=== PATIENT | female | born 1935 ===

== ENCOUNTER 2016-07-23 11:07 | Observation (INO) | payer MEDICARE, OTHER ==
--- NOTE | 2016-07-23 11:24 | ED PDOC ---
HPI: General Adult Time Seen by Provider: 07/23/16 11:20 Chief Complaint (Provider): chest pain History Per: Patient History/Exam Limitations: no limitations Additional Complaint(s): 80yo female sent to the ED from [facility] for changes noted on EKG. Family states patient was not feeling well last night with left sided chest pain and had a fever this morning. Family states patient complaining of body aches, generally weak. No ear pain, abdominal pain, nausea, vomit, dizziness, rash, dysuria. A loop recorder was implanted in September 2015 by an electrocardiologist in [place]. Patient reportedly not compliant with aspirin. When she had CVA on 06/19/15 she had minimal right side weakness and difficulty with speech. 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[place], [place] PMD: [facility] Past Medical History Reviewed: Historical Data, Nursing Documentation, Vital Signs Vital Signs: Last Vital Signs Temp 98.8 F 07/24/16 16:00 Pulse 60 07/24/16 16:00 Resp 20 07/24/16 16:00 BP 150/73 07/24/16 16:00 Pulse Ox 96 07/24/16 16:00 - Medical History PMH: CVA ("minor" on 06/19/15), HTN, Hypercholesterolemia - Family History Family History: States: Unknown Family Hx - Home Medications Home Medications: Ambulatory Orders Medication Instructions Recorded Atorvastatin [Lipitor] 40 mg PO HS 07/23/16 Valsartan [Diovan] 80 mg PO DAILY 07/23/16 Aspirin [Aspirin Chewable] 81 mg PO DAILY #30 chew 07/24/16 Famotidine [Pepcid] 20 mg PO DAILY #30 tab 07/24/16 - Allergies Allergies/Adverse Reactions: Allergies Allergy/AdvReac Type Severity Reaction Status Date / Time No Known Allergies Allergy Verified 07/23/16 11:22 Review of Systems ROS Statement: Except As Marked, All Systems Reviewed And Found Negative Constitutional: Positive for: Fever, Weakness, Other (body aches) ENT: Negative for: Ear Pain Cardiovascular: Positive for: Chest Pain Gastrointestinal: Negative for: Nausea, Vomiting, Abdominal Pain Genitourinary Female: Negative for: Dysuria Skin: Negative for: Rash Neurological: Negative for: Dizziness Physical Exam - Reviewed Nursing Documentation Reviewed: Yes Vital Signs Reviewed: Yes - Physical Exam Appears: Positive for: Well, Non-toxic, No Acute Distress Head Exam: Positive for: ATRAUMATIC, NORMAL INSPECTION, NORMOCEPHALIC Skin: Positive for: Warm, Dry Eye Exam: Positive for: EOMI, PERRL Cardiovascular/Chest: Positive for: Regular Rate, Rhythm Respiratory: Positive for: Normal Breath Sounds. Negative for: Rales, Rhonchi, Wheezing Gastrointestinal/Abdominal: Positive for: Soft. Negative for: Tenderness Extremity: Positive for: Normal ROM - Laboratory Results Result Diagrams: 07/24/16 04:55 07/24/16 04:55 - Radiology X-Ray: Read By Radiologist (CXR) X-Ray Interpretation: Other (Mild pulmonary venous congestion. No lobar pneumonia.) Medical Decision Making Medical Decision Makin Cardiac workup initiated. Rule out sepsis. EKG, CXR, Labs, influenza ordered. 1138 Vital signs reviewed, 101.2*F fever noted. 1527 Case discussed with Fred Thorne, ALEAH @ [facility]. Discussed new EKG finding RBBB, labs, CXR, normal lactate. Patient accepted to [facility] for fever, abnormal EKG Disposition - Clinical Impression Clinical Impression: Fever, Abnormal EKG, Chest pain - Patient ED Disposition Is Patient to be Admitted: Yes Counseled Patient/Family Regarding: Studies Performed, Diagnosis - Disposition Disposition Time: 15:27 Condition: STABLE - Pt Status Changed To: Hospital Disposition Of: Observation - POA Present On Arrival: None Additional Comments - Additional Comments Additional Comments: Scribe Attestation: Documented by Ayan Velasquez acting as a scribe for Kevin Elias DO. Provider Scribe Attestation: All medical record entries made by the Scribe were at my direction and personally dictated by me. I have reviewed the chart and agree that the record accurately reflects my personal performance of the history, physical exam, medical decision making, and the department course for this patient. I have also personally directed, reviewed, and agree with the discharge instructions and disposition.
[2016-07-23] MEDS ORDERED: Sodium Chloride 0.9% 1,000 ML IV STA (11:39)
[2016-07-23 12:04] LABS: BASO # 0.1 K/uL (0.0-0.2); BASO % 0.5 % (0.0-2.0); EOS % 0.1 % (0.0-4.0); HEMATOCRIT 37.5 % (34.0-47.0); LYMPH # 1.9 K/uL (1.0-4.3); LYMPH % 16.6 % (20.0-40.0); MEAN CELL VOLUME 87.1 fl (81.0-99.0); MEAN CORPUSCULAR HEMOGLOBIN 29.7 pg (27.0-31.0); MEAN CORPUSCULAR HGB CONC 34.1 g/dL (33.0-37.0); MEAN PLATELET VOLUME 8.5 fl (7.2-11.7); MONO # 0.6 K/uL (0.0-0.8); NEUT # 9.1 K/uL (1.8-7.0); NEUT % 77.8 % (50.0-75.0); RED CELL DISTRIBUTION WIDTH 13.7 % (11.5-14.5); WHITE BLOOD COUNT 11.7 K/uL (4.8-10.8)
[2016-07-23 12:13] LABS: ALB/GLOB RATIO 1.1 (1.0-2.1); ALKALINE PHOSPHATASE 49 U/L (38-126); ALT/SGPT 31 U/L (9-52); AST/SGOT 26 U/L (14-36); BILIRUBIN,TOTAL 0.6 mg/dl (0.2-1.3); BLOOD UREA NITROGEN 15 mg/dl (7-17); CALCIUM 9.1 mg/dL (8.4-10.2); CARBON DIOXIDE 17 mmol/L (22-30); CHLORIDE 106 mmol/L (98-107); GFR AFRICAN-AMERICAN > 60; GLUCOSE,RANDOM 111 mg/dL (65-105); MAGNESIUM 1.6 MG/DL (1.6-2.3); PHOSPHOROUS 3.2 mg/dl (2.5-4.5); POTASSIUM 3.6 MMOL/L (3.6-5.0); SODIUM 141 mmol/l (132-148); TOTAL PROTEIN 7.6 G/DL (6.3-8.2)
[2016-07-23 12:25] LABS: PARTIAL THROMBOPLASTIN TIME 25.6 SECONDS (23.3-32.5)
[2016-07-23 12:29] LABS: VENOUS BLOOD GAS BASE EXCESS 0.3 mmol/L (0.0-2.0); VENOUS BLOOD GAS PCO2 21 mmHg (40-60); VENOUS BLOOD PH 7.59 (7.32-7.43)
[2016-07-23 14:30] LABS: RBC URINE < 1 /hpf (0-3); URINE BILIRUBIN NEGATIVE (NEGATIVE); URINE BLOOD NEGATIVE (NEGATIVE); URINE COLOR YELLOW (YELLOW); URINE GLUCOSE (UA) NEG (Normal); URINE KETONE NEGATIVE (NEGATIVE); URINE LEUKOCYTE ESTERASE NEG Leu/uL (Negative); URINE PROTEIN NEGATIVE (NEGATIVE); URINE UROBILINOGEN 0.2-1.0 mg/dL (0.2-1.0); WBC URINE < 1 /hpf (0-5)
--- NOTE | 2016-07-23 15:12 | RAD ---
PROCEDURE: CHEST RADIOGRAPH, 1 VIEW HISTORY: Chest pain COMPARISON: 04/28/2012 FINDINGS: LUNGS: The lungs are well inflated. There is mild pulmonary venous congestion. There is no focal consolidation. PLEURA: No pneumothorax or pleural fluid seen. CARDIOVASCULAR: There is mild cardiomegaly. OSSEOUS STRUCTURES: No significant abnormalities. VISUALIZED UPPER ABDOMEN: Normal. OTHER FINDINGS: None. IMPRESSION: Mild pulmonary venous congestion. No lobar pneumonia.
[2016-07-23] MEDS: Sodium Chloride 0.9% 1,000 ML IV SCH (18:36)
--- NOTE | 2016-07-23 18:52 | CP.PCM.CON ---
History of Present Illness - History of Present Illness History of Present Illness: I was asked to see patient by Dr. Urban and Arlin Thorne APN. Patient is a 80 year old female with a PMH HTN, hypercholesterolemia, CVA who presents with chest pain. The patient describes intermittent substernal burning in the center of the chest. Symptoms became progressive. There is no associated dyspnea. The patient was noted to have a fever. Review of Systems - Constitutional Constitutional: absent: As Per HPI, Anorexia, Chills, Daytime Sleepiness, Excessive Sweating, Fatigue, Fever, Frequent Falls, Headache, Increased Appetite , Lethargy, Malaise, Night Sweats, Snoring, Sleep Apnea, Weight Gain, Weight Loss, Weakness, Other - EENT Eyes: absent: As Per HPI, Blind Spots, Blurred Vision, Change in Vision, Decreased Night Vision, Diplopia, Discharge, Dry Eye, Exophthalmos, Floaters, Irritation, Itchy Eyes, Loss of Peripheral Vision, Pain, Photophobia, Requires Corrective Lenses, Sees Flashes, Spots in Vision, Tunnel Vision, Other Visual Disturbances, Loss of Vision, Other Ears: absent: As Per HPI, Decreased Hearing, Ear Discharge, Ear Pain, Tinnitus, Abnormal Hearing, Disequilibrium, Dizziness, Other Nose/Mouth/Throat: absent: As Per HPI, Epistaxis, Nasal Congestion, Nasal Discharge, Nasal Obstruction, Nasal Trauma, Nose Pain, Post Nasal Drip, Sinus Pain, Sinus Pressure, Bleeding Gums, Change in Voice, Dental Pain, Dry Mouth, Dysphagia, Halitosis, Hoarsness, Lip Swelling, Mouth Lesions, Mouth Pain, Odynophagia, Sore Throat, Throat Swelling, Tongue Swelling, Facial Pain, Neck Pain, Neck Mass, Other - Breasts Breasts: absent: As Per HPI, Change in Shape, Mass, Pain, Nipple Discharge, Nipple Inversion, Skin Changes, Swelling, Other - Cardiovascular Cardiovascular: Chest Pain - Respiratory Respiratory: absent: As Per HPI, Cough, Dyspnea, Hemoptysis, Dyspnea on Exertion , Wheezing, Snoring, Stridor, Pain on Inspiration, Chest Congestion, Excessive Mucous Production, Change in Mucous Color, Pain with Coughing, Other - Gastrointestinal Gastrointestinal: absent: As Per HPI, Abdominal Pain, Belching, Bloating, Change in Bowel Habits, Change in Stool Character, Coffee Ground Emesis, Constipation, Cramping, Diarrhea, Dyspepsia, Dysphagia, Early Satiety, Excessive Flatus, Fecal Incontinence, Heartburn, Hematemesis, Hematochezia, Loose Stools, Melena, Nausea, Odynophagia, Temesmus, Vomiting, Other - Genitourinary Genitourinary: absent: As Per HPI, Change in Urinary Stream, Difficulty Urinating, Dysuria, Flank Pain, Hematuria, Pyuria, Nocturia, Urinary Incontinence, Urinary Frequency, Urinary Hesitance, Urinary Urgency, Voiding Freq/Small Amts, Freq UTI, Hx Renal/Bladder Calculi, Hx /Renal Surgery, Bladder Distension, Other - Musculoskeletal Musculoskeletal: absent: As Per HPI, Abnormal Gait, Arthralgias, Atrophy, Back Pain, Deformity, Joint Swelling, Limited Range of Motion, Loss of Height, Muscle Cramps, Muscle Weakness, Myalgias, Neck Pain, Numbness, Radiating Pain into Limb, Stiffness, Tingling, Other - Integumentary Integumentary: absent: As Per HPI, Acne, Alopecia, Bleeding Lesions, Change in Hair, Change in Nails, Change in Pigmentation, Changing Lesions, Dry Skin, Erythema, Furuncle, Hirsutism, Lesions, New Lesions, Non-Healing Lesions, Photosensitivity, Pruritus, Rash, Skin Pain, Skin Ulcer, Sores, Striae, Swelling , Unusual Bruising, Wounds, Jaundice, Other - Neurological Neurological: absent: As Per HPI, Abnormal Gait, Abnormal Hearing, Abnormal Movements, Abnormal Speech, Behavioral Changes, Burning Sensations, Confusion, Convulsions, Disequilibrium, Dizziness, Numbness, Focal Weakness, Frequent Falls , Headaches, Lack of Coordination, Loss of Vision, Memory Loss, Paresthesias, Radicular Pain, Restless Legs, Sensory Deficit, Syncope, Tingling, Tremor, Vertigo, Weakness, Other Visual Disturbances, Other - Psychiatric Psychiatric: absent: As Per HPI, Abnormal Sleep Pattern, Anhedonia, Anxiety, Auditory Hallucinations, Behavioral Changes, Change in Appetite, Change in Libido, Confusion, Depression, Difficulty Concentrating, Hallucinations, Homicidal Ideation, Hopelessness, Irritability, Memory Loss, Mood Swings, Panic Attacks, Paranoia, Suicidal Ideation, Visual Hallucinations, Tactile Hallucinations, Other - Endocrine Endocrine: absent: As Per HPI, Change in Body Appearance, Change in Libido, Cold Intolorance, Deepening of Voice, Excessive Sweating, Fatigue, Flushing, Heat Intolorance, Increase in Ring/Shoe/Hat Size, Palpitations, Polydipsia, Polyphagia, Polyuria, Other - Hematologic/Lymphatic Hematologic: absent: As Per HPI, Easy Bleeding, Easy Bruising, Lymphadenopathy, Other Past Patient History - Past Medical History & Family History Past Medical History?: Yes - Past Social History Smoking Status: Never Smoked - CARDIAC Hx Cardiac Disorders: Yes Hx Hypercholesterolemia: Yes Hx Hypertension: Yes - PULMONARY Hx Respiratory Disorders: No - NEUROLOGICAL Hx Neurological Disorder: Yes HX Cerebrovascular Accident: Yes (06/19/2015) - HEENT Hx HEENT Problems: No - RENAL Hx Chronic Kidney Disease: No - ENDOCRINE/METABOLIC Hx Endocrine Disorders: No - HEMATOLOGICAL/ONCOLOGICAL Hx Blood Disorders: No - INTEGUMENTARY Hx Dermatological Problems: No - MUSCULOSKELETAL/RHEUMATOLOGICAL Hx Musculoskeletal Disorders: No Hx Falls: No - GASTROINTESTINAL Hx Gastrointestinal Disorders: No - GENITOURINARY/GYNECOLOGICAL Hx Genitourinary Disorders: No - PSYCHIATRIC Hx Psychophysiologic Disorder: No Hx Substance Use: No - SURGICAL HISTORY Hx Surgeries: No - ANESTHESIA Hx Anesthesia: No Hx Anesthesia Reactions: No Hx Malignant Hyperthermia: No Has any member of the family had a problem w/ anesthesia?: No Meds Allergies/Adverse Reactions: Allergies Allergy/AdvReac Type Severity Reaction Status Date / Time No Known Allergies Allergy Verified 07/23/16 11:22 - Medications Medications: Current Medications Acetaminophen (Tylenol 325mg Tab) 650 mg PO Q4 PRN PRN Reason: Fever >100.4 F Acetaminophen (Tylenol 325mg Tab) 650 mg PO Q4 PRN PRN Reason: Pain, moderate (4-7) Atorvastatin Calcium (Lipitor) 40 mg PO HS [facility] Sodium Chloride (Sodium Chloride 0.9%) 1,000 mls @ 100 mls/hr IV .Q10H VASYL Stop: 07/24/16 15:46 Last Admin: 07/23/16 18:36 Dose: 100 mls/hr Valsartan (Diovan) 80 mg PO DAILY [facility] Physical Exam - Constitutional Appears: Non-toxic - Head Exam Head Exam: NORMAL INSPECTION - Eye Exam Eye Exam: Normal appearance - ENT Exam ENT Exam: Mucous Membranes Moist - Neck Exam Neck exam: Positive for: Full Rom - Respiratory Exam Respiratory Exam: Decreased Breath Sounds - Cardiovascular Exam Cardiovascular Exam: REGULAR RHYTHM - GI/Abdominal Exam GI & Abdominal Exam: Normal Bowel Sounds - Rectal Exam Rectal Exam: Deferred - Extremities Exam Extremities exam: Negative for: pedal edema - Back Exam Back exam: NORMAL INSPECTION - Neurological Exam Neurological exam: Alert, Oriented x3 - Psychiatric Exam Psychiatric exam: Normal Affect - Skin Skin Exam: Normal Color Results - Vital Signs Recent Vital Signs: Last Vital Signs Temp 99.8 F H 07/23/16 17:07 Pulse 63 07/23/16 17:00 Resp 18 07/23/16 17:20 BP 157/78 H 07/23/16 17:00 Pulse Ox 96 07/23/16 17:00 - Labs Result Diagrams: 07/24/16 04:55 07/24/16 04:55 - EKG Data EKG Interpreted by: Myself Assessment & Plan (1) Chest pain Assessment and Plan: unclear etiology, but appears atypical for angina. Recommend serial cardiac enzymes. can check echocardiogram. Status: Acute (2) Fever Assessment and Plan: check blood culutre, urine culture Status: Acute (3) HTN (hypertension) Assessment and Plan: blood pressure control Status: Acute
[2016-07-24] MEDS: Sodium Chloride 0.9% 1,000 ML IV SCH ×2 (02:44→12:17)
[2016-07-24 06:49] LABS: BASO # 0.1 K/uL (0.0-0.2); BASO % 0.5 % (0.0-2.0); EOS % 0.2 % (0.0-4.0); LYMPH # 1.7 K/uL (1.0-4.3); LYMPH % 14.3 % (20.0-40.0); MEAN CELL VOLUME 89.3 fl (81.0-99.0); MEAN CORPUSCULAR HEMOGLOBIN 29.4 pg (27.0-31.0); MEAN PLATELET VOLUME 8.1 fl (7.2-11.7); MONO # 0.9 K/uL (0.0-0.8); MONO % 7.8 % (0.0-10.0); NEUT # 9.2 K/uL (1.8-7.0); NEUT % 77.2 % (50.0-75.0); RED CELL DISTRIBUTION WIDTH 13.7 % (11.5-14.5); WHITE BLOOD COUNT 11.9 K/uL (4.8-10.8)
[2016-07-24 06:56] LABS: ALKALINE PHOSPHATASE 49 U/L (38-126); ALT/SGPT 32 U/L (9-52); AST/SGOT 32 U/L (14-36); BILIRUBIN,TOTAL 0.5 mg/dl (0.2-1.3); BLOOD UREA NITROGEN 10 mg/dl (7-17); CALCIUM 8.2 mg/dL (8.4-10.2); CARBON DIOXIDE 19 mmol/L (22-30); CHLORIDE 111 mmol/L (98-107); GFR AFRICAN-AMERICAN > 60; GLUCOSE,RANDOM 109 mg/dL (65-105); POTASSIUM 3.4 MMOL/L (3.6-5.0); SODIUM 146 mmol/l (132-148); TOTAL PROTEIN 7.1 G/DL (6.3-8.2)
[2016-07-24] MEDS ORDERED: Sodium Chloride 3% for Inhalation 4 ML VIAL.NEB IH PRN (07:27)
--- NOTE | 2016-07-24 07:27 | CP.PCM.HP ---
History of Present Illness - History of Present Illness History of Present Illness: pt admitted for fever, chest burning and abn ekg. bw noted in ER and this am. trops noted. k low this am-repleted. ?? murmur heard-echo ordered. pt seen cardio last night. no comlaints this am. no cp, dyspnea, cough/congestion. no n/v/d/. had some fevers overnight. c/s pending. h/o cva 1 yr ago. h/o afib w/ loop recorder in place Present on Admission - Present on Admission Any Indicators Present on Admission: No Review of Systems - Constitutional Constitutional: As Per HPI, Fatigue, Fever, Malaise - Cardiovascular Cardiovascular: As Per HPI, Chest Pain, Irregular Heart Rhythm Additional comments: described as burning Past Patient History - Past Medical History & Family History Past Medical History?: Yes - Past Social History Smoking Status: Never Smoked - CARDIAC Hx Cardiac Disorders: Yes Hx Hypercholesterolemia: Yes Hx Hypertension: Yes - PULMONARY Hx Respiratory Disorders: No - NEUROLOGICAL Hx Neurological Disorder: Yes HX Cerebrovascular Accident: Yes (06/19/2015) - HEENT Hx HEENT Problems: No - RENAL Hx Chronic Kidney Disease: No - ENDOCRINE/METABOLIC Hx Endocrine Disorders: No - HEMATOLOGICAL/ONCOLOGICAL Hx Blood Disorders: No - INTEGUMENTARY Hx Dermatological Problems: No - MUSCULOSKELETAL/RHEUMATOLOGICAL Hx Musculoskeletal Disorders: No Hx Falls: No - GASTROINTESTINAL Hx Gastrointestinal Disorders: No - GENITOURINARY/GYNECOLOGICAL Hx Genitourinary Disorders: No - PSYCHIATRIC Hx Psychophysiologic Disorder: No Hx Substance Use: No - SURGICAL HISTORY Hx Surgeries: No - ANESTHESIA Hx Anesthesia: No Hx Anesthesia Reactions: No Hx Malignant Hyperthermia: No Has any member of the family had a problem w/ anesthesia?: No Meds Allergies/Adverse Reactions: Allergies Allergy/AdvReac Type Severity Reaction Status Date / Time No Known Allergies Allergy Verified 07/23/16 11:22 Physical Exam - Constitutional Appears: Well, Non-toxic, No Acute Distress - Head Exam Head Exam: ATRAUMATIC, NORMAL INSPECTION, NORMOCEPHALIC - Eye Exam Eye Exam: EOMI, Normal appearance, PERRL Pupil Exam: NORMAL ACCOMODATION, PERRL - ENT Exam ENT Exam: Mucous Membranes Moist, Normal Exam - Neck Exam Neck exam: Positive for: Normal Inspection - Respiratory Exam Respiratory Exam: Clear to Auscultation Bilateral, NORMAL BREATHING PATTERN - Cardiovascular Exam Cardiovascular Exam: Irregular Rhythm, +S1, +S2, Systolic Murmur - GI/Abdominal Exam GI & Abdominal Exam: Normal Bowel Sounds, Soft. absent: Tenderness - Extremities Exam Extremities exam: Positive for: full ROM, normal capillary refill, normal inspection, pedal pulses present - Back Exam Back exam: FULL ROM, NORMAL INSPECTION - Neurological Exam Neurological exam: Alert, CN II-XII Intact, Normal Gait, Oriented x3, Reflexes Normal - Psychiatric Exam Psychiatric exam: Normal Affect, Normal Mood - Skin Skin Exam: Dry, Intact, Normal Color, Warm Results - Vital Signs Recent Vital Signs: Last Vital Signs Temp 99.7 F H 07/24/16 05:40 Pulse 62 07/24/16 05:40 Resp 20 07/24/16 05:40 BP 124/72 07/24/16 05:40 Pulse Ox 94 L 07/24/16 05:40 - Labs Result Diagrams: 07/24/16 04:55 07/24/16 04:55 Labs: Laboratory Results - last 24 hr 07/23/16 07/24/16 20:45 04:55 WBC 11.9 H RBC 4.14 Hgb 12.2 Hct 37.0 MCV 89.3 D MCH 29.4 MCHC 33.0 RDW 13.7 Plt Count 179 MPV 8.1 Neut % (Auto) 77.2 H Lymph % (Auto) 14.3 L [place] % (Auto) 7.8 Eos % (Auto) 0.2 Baso % (Auto) 0.5 Neut # 9.2 H Lymph # 1.7 [place] # 0.9 H Eos # 0.0 Baso # 0.1 Sodium 146 Potassium 3.4 L Chloride 111 H Carbon Dioxide 19 L Anion Gap 19 BUN 10 Creatinine 0.7 Est GFR ( Amer) > 60 Est GFR (Non-Af Amer) > 60 Random Glucose 109 H Calcium 8.2 L Total Bilirubin 0.5 AST 32 ALT 32 Alkaline Phosphatase 49 Troponin I 0.0230 0.0340 Total Protein 7.1 Albumin 3.6 Globulin 3.5 Albumin/Globulin Ratio 1.0 Assessment & Plan (1) Fever Assessment and Plan: tylenol prn, f/u c/s ivf echo Status: Acute (2) HTN (hypertension) Assessment and Plan: cont home meds Status: Acute (3) Abnormal EKG Assessment and Plan: cardio, trops tele obs Status: Acute (4) Hypokalemia Assessment and Plan: kdur repeat bmp in am Status: Acute (5) Murmur Assessment and Plan: echo cardio Status: Acute (6) H/O: CVA (cerebrovascular accident) Assessment and Plan: asa outpt f/u Status: Acute (7) Afib Assessment and Plan: rate control loop monitor asa Status: Acute (8) DVT prophylaxis Assessment and Plan: scd and aehose ambulation lovenox if admitted over 24h Status: Acute Decision To Admit - Pt Status Changed To: Hospital Disposition Of: Observation - . Bed Request Type: Telemetry Admitting Physician: John Paul Urban
[2016-07-24] MEDS ORDERED: Potassium Chloride 20 mEq ER Tab PO ONE (07:30)
--- NOTE | 2016-07-24 15:43 | CARD ---
APPROVED REPORT EXAM: Two-dimensional and M-mode echocardiogram with Doppler and color Doppler. Other Information Quality : GoodRhythm : NSR INDICATION Murmur Fever 2D DIMENSIONS IVSd1.61 (0.7-1.1cm)LVDd3.72 (3.9-5.9cm) LVOT Diameter1.77 (1.8-2.4cm)PWd1.08 (0.7-1.1cm) IVSs1.41 (0.8-1.2cm)LVDs2.84 (2.5-4.0cm) FS (%) 23.6 %PWs1.28 (0.8-1.2cm) M-Mode DIMENSIONS Left Atrium (MM)4.69 (2.5-4.0cm)IVSd1.19 (0.7-1.1cm) Aortic Root2.78 (2.2-3.7cm)LVDd4.81 (4.0-5.6cm) Aortic Cusp Exc.1.75 (1.5-2.0cm)PWd0.94 (0.7-1.1cm) IVSs1.72 cmFS (%) 47 % LVDs2.53 (2.0-3.8cm)PWs1.69 cm Mitral Valve MV E Npjdepxg07.4cm/sMV DECEL [id number] A Ftbtybmz39.1cm/s MV UVZ59chB/A ratio1.0MVA (PHT)2.84cm2 TDI Lateral E' Peak V6.76cm/sMedial E' Peak V4.64cm/sE/Lateral E'11.7 E/Medial E'17.1 Pulmonary Valve PV Peak Pkbwbiij789.6cm/s Tricuspid Valve TR Peak Fhhiwukg551yh/sRAP [id number] Peak Gr.22mmHg [id number] LEFT VENTRICLE The left ventricle is normal size. There is normal left ventricular wall thickness. The left ventricular function is normal. The left ventricular ejection fraction is - 70%. There is normal LV segmental wall motion. Transmitral Doppler flow pattern is Grade I-abnormal relaxation pattern. No left ventricle thrombus noted on this study. There is no ventricular septal defect visualized. There is no left ventricular aneurysm. There is no mass noted in the left ventricle. RIGHT VENTRICLE The right ventricle is normal size. There is normal right ventricular wall thickness. The right ventricular systolic function is normal. ATRIA The left atrium is mildly dilated. There is no thrombus suspected in the left atrium. The right atrium size is normal. The interatrial septum is intact with no evidence for an atrial septal defect. AORTIC VALVE The aortic valve is mildly thickened. No aortic regurgitation is present. There is no aortic valvular stenosis. There is no aortic valvular vegetation. MITRAL VALVE The mitral valve is normal in structure and function. There is no evidence of mitral valve prolapse. There is no mitral valve stenosis. Mitral regurgitation is mild. TRICUSPID VALVE The tricuspid valve is normal in structure and function. There is moderate tricuspid regurgitation. Right ventricular systolic pressure is estimated at 30 mmHg. There is no tricuspid valve prolapse or vegetation. There is no tricuspid valve stenosis. PULMONIC VALVE The pulmonic valve is not well visualized. There is no pulmonic valvular regurgitation. GREAT VESSELS The aortic root is normal in size. The IVC is normal in size and collapses >50% with inspiration. PERICARDIAL EFFUSION The pericardium appears normal. There is no pleural effusion. <Conclusion> The left ventricle is normal in size and wall thickness. The left ventricular function is normal with a LVEF of - 70%. The left atrium is mildly dilated. The aortic valve is mildly thickened but not stenotic. The mitral and tricuspid valve are normal. No valvular vegetations were seen. There is mild mitral regurgitation and moderate tricuspid regurgitation.
[2016-07-24 16:11] VITALS: BP 150/73; PULSE 60; RESP 20; TEMP 98.8; O2SAT 96
--- NOTE | 2016-07-24 17:22 | CP.PCM.DIS ---
Provider - Provider Date of Admission: 07/23/16 15:29 Attending physician: John Paul Urban MD Time Spent in preparation of Discharge (in minutes): 15 Diagnosis - Discharge Diagnosis (1) Fever Status: Acute (2) HTN (hypertension) Status: Acute (3) Abnormal EKG Status: Acute (4) Hypokalemia Status: Acute (5) Murmur Status: Acute (6) H/O: CVA (cerebrovascular accident) Status: Acute (7) Afib Status: Acute (8) DVT prophylaxis Status: Acute Hospital Course - Lab Results Lab Results: Most Recent Lab Values WBC 11.9 K/uL (4.8-10.8) H 07/24/16 04:55 RBC 4.14 Mil/uL (3.80-5.20) 07/24/16 04:55 Hgb 12.2 g/dL (12.0-16.0) 07/24/16 04:55 Hct 37.0 % (34.0-47.0) 07/24/16 04:55 MCV 89.3 fl (81.0-99.0) D 07/24/16 04:55 MCH 29.4 pg (27.0-31.0) 07/24/16 04:55 MCHC 33.0 g/dL (33.0-37.0) 07/24/16 04:55 RDW 13.7 % (11.5-14.5) 07/24/16 04:55 Plt Count 179 K/uL (130-400) 07/24/16 04:55 MPV 8.1 fl (7.2-11.7) 07/24/16 04:55 Neut % (Auto) 77.2 % (50.0-75.0) H 07/24/16 04:55 Lymph % (Auto) 14.3 % (20.0-40.0) L 07/24/16 04:55 Mcdonald % (Auto) 7.8 % (0.0-10.0) 07/24/16 04:55 Eos % (Auto) 0.2 % (0.0-4.0) 07/24/16 04:55 Baso % (Auto) 0.5 % (0.0-2.0) 07/24/16 04:55 Neut # 9.2 K/uL (1.8-7.0) H 07/24/16 04:55 Lymph # 1.7 K/uL (1.0-4.3) 07/24/16 04:55 Mcdonald # 0.9 K/uL (0.0-0.8) H 07/24/16 04:55 Eos # 0.0 K/uL (0.0-0.7) 07/24/16 04:55 Baso # 0.1 K/uL (0.0-0.2) 07/24/16 04:55 PT 11.2 SECONDS (9.6-11.2) 07/23/16 11:45 INR 1.08 (0.92-1.08) 07/23/16 11:45 APTT 25.6 SECONDS (23.3-32.5) 07/23/16 11:45 pO2 45 mm/Hg (30-55) 07/23/16 12:20 VBG pH 7.59 (7.32-7.43) H 07/23/16 12:20 VBG pCO2 21 mmHg (40-60) L 07/23/16 12:20 VBG HCO3 24.9 mmol/L 07/23/16 12:20 VBG Total CO2 20.7 mmol/L (22-28) L 07/23/16 12:20 VBG O2 Sat (Calc) 91.1 % (40-65) H 07/23/16 12:20 VBG Base Excess 0.3 mmol/L (0.0-2.0) 07/23/16 12:20 VBG Potassium 3.6 mmol/L (3.6-5.2) 07/23/16 12:20 Sodium 135.0 mmol/L (132-148) 07/23/16 12:20 Chloride 110.0 mmol/L (98-107) H 07/23/16 12:20 Glucose 111 mg/dL (65-105) H 07/23/16 12:20 Lactate 1.9 mmol/L (0.7-2.1) 07/23/16 12:20 FiO2 21.0 % 07/23/16 12:20 Sodium 146 mmol/l (132-148) 07/24/16 04:55 Potassium 3.4 MMOL/L (3.6-5.0) L 07/24/16 04:55 Chloride 111 mmol/L (98-107) H 07/24/16 04:55 Carbon Dioxide 19 mmol/L (22-30) L 07/24/16 04:55 Anion Gap 19 (10-20) 07/24/16 04:55 BUN 10 mg/dl (7-17) 07/24/16 04:55 Creatinine 0.7 mg/dL (0.7-1.2) 07/24/16 04:55 Est GFR ( Amer) > 60 07/24/16 04:55 Est GFR (Non-Af Amer) > 60 07/24/16 04:55 Random Glucose 109 mg/dL (65-105) H 07/24/16 04:55 Calcium 8.2 mg/dL (8.4-10.2) L 07/24/16 04:55 Phosphorus 3.2 mg/dl (2.5-4.5) 07/23/16 11:45 Magnesium 1.6 MG/DL (1.6-2.3) 07/23/16 11:45 Total Bilirubin 0.5 mg/dl (0.2-1.3) 07/24/16 04:55 AST 32 U/L (14-36) 07/24/16 04:55 ALT 32 U/L (9-52) 07/24/16 04:55 Alkaline Phosphatase 49 U/L (38-126) 07/24/16 04:55 Troponin I 0.0340 ng/mL (0.00-0.120) 07/24/16 04:55 Total Protein 7.1 G/DL (6.3-8.2) 07/24/16 04:55 Albumin 3.6 g/dL (3.5-5.0) 07/24/16 04:55 Globulin 3.5 gm/dL (2.2-3.9) 07/24/16 04:55 Albumin/Globulin Ratio 1.0 (1.0-2.1) 07/24/16 04:55 Venous Blood Potassium 3.6 mmol/L (3.6-5.2) 07/23/16 12:20 Urine Color Yellow (YELLOW) 07/23/16 13:57 Urine Clarity Clear (Clear) 07/23/16 13:57 Urine pH 7.0 (5.0-8.0) 07/23/16 13:57 Ur Specific [place] 1.013 (1.003-1.030) 07/23/16 13:57 Urine Protein Negative mg/dL (NEGATIVE) 07/23/16 13:57 Urine Glucose (UA) Neg mg/dL (Normal) 07/23/16 13:57 Urine Ketones Negative mg/dL (NEGATIVE) 07/23/16 13:57 Urine Blood Negative (NEGATIVE) 07/23/16 13:57 Urine Nitrate Negative (NEGATIVE) 07/23/16 13:57 Urine Bilirubin Negative (NEGATIVE) 07/23/16 13:57 Urine Urobilinogen 0.2-1.0 mg/dL (0.2-1.0) 07/23/16 13:57 Ur Leukocyte Esterase Neg [place]/uL (Negative) 07/23/16 13:57 Urine RBC (Auto) < 1 /hpf (0-3) 07/23/16 13:57 Urine Microscopic WBC < 1 /hpf (0-5) 07/23/16 13:57 Ur Squamous Epith Cells 6 /hpf (0-5) H 07/23/16 13:57 Influenza Typ A,B (EIA) Negative for flu a/b (NEGATIVE) 07/23/16 11:50 Discharge Exam - Head Exam Head Exam: ATRAUMATIC, NORMAL INSPECTION, NORMOCEPHALIC Discharge Plan - Discharge Medications Prescriptions: Aspirin [Aspirin Chewable] 81 mg PO DAILY #30 chew Famotidine [Pepcid] 20 mg PO DAILY #30 tab - Follow Up Plan Condition: STABLE Disposition: HOME/ ROUTINE Instructions: Fever in Adults (GEN), Chronic Hypertension (DC) Additional Instructions: cleard by cardio. pt feels better. spoke to daughter and pt wishes to be dc home. spok eto primary who agrees w/ plan of dc home w/ f/u in am. prelim c/s negative. will dc w/ f/u in am. final dx-fever unkn origin. rted prn, meds per med rec
== END 2016-07-24 17:00 | disposition home or self-care (01) ==
LOC: H.ER 11:07 → H.ERHOLD 15:29 → H.TEL 16:59
PROVIDERS: ADMIT Family Medicine; ATTEND Family Medicine
DX: R50.9 Fever, unspecified (principal); I10 Essential (primary) hypertension; R94.31 Abnormal electrocardiogram [ECG] [EKG]; E87.6 Hypokalemia; R01.1 Cardiac murmur, unspecified; Z86.73 Personal history of transient ischemic attack (TIA), and cerebral infarction without residual deficits; I48.91 Unspecified atrial fibrillation; E78.00 Pure hypercholesterolemia, unspecified; Z91.14 Patient's other noncompliance with medication regimen
CPT/HCPCS: 36415; 71010; 80053; 81003; 82803; 83735; 84100; 84484; 85025; 85610; 85730; 87040; 87086; 87804; 93306; 96360; 99285; G0378; J7040

== ENCOUNTER 2017-09-19 07:28 | Day surgery (SDC) | payer MEDICARE, OTHER ==
[2017-09-19] MEDS ORDERED: Lactated Ringer's 500 ML IV ONE (08:09)
[2017-09-19] MEDS ORDERED: Propofol 10 mg/ml Inj (20 ML) ONE (09:23)
[2017-09-19 09:45] VITALS: TEMP 97
[2017-09-19 10:06] VITALS: BP 136/64; PULSE 51; RESP 16; O2SAT 97
== END 2017-09-19 10:32 | disposition home or self-care (01) ==
LOC: H.ENDO 07:28
PROVIDERS: ATTEND Internal Medicine Gastroenterology
DX: R12 Heartburn (principal); K44.9 Diaphragmatic hernia without obstruction or gangrene; K22.8 Other specified diseases of esophagus; K31.89 Other diseases of stomach and duodenum; K29.50 Unspecified chronic gastritis without bleeding; K21.9 Gastro-esophageal reflux disease without esophagitis
CPT/HCPCS: 43239; 88305; J2001; J2704; J7120

== ENCOUNTER 2017-10-03 08:29 | Day surgery (SDC) | payer MEDICARE ==
[2017-10-03] MEDS ORDERED: Lactated Ringer's 500 ML IV ONE (09:34)
[2017-10-03] MEDS ORDERED: Propofol 10 mg/ml Inj (20 ML) ONE (09:39)
[2017-10-03 10:04] VITALS: RESP 15; O2SAT 97
[2017-10-03 10:19] VITALS: BP 162/56; PULSE 54; TEMP 97
== END 2017-10-03 11:50 | disposition home or self-care (01) ==
LOC: H.ENDO 08:29 → MERGE 08:29 → H.ENDO 11:50
PROVIDERS: ATTEND Internal Medicine Gastroenterology
DX: Z12.11 Encounter for screening for malignant neoplasm of colon (principal); K21.9 Gastro-esophageal reflux disease without esophagitis; Z79.82 Long term (current) use of aspirin; E78.5 Hyperlipidemia, unspecified; I10 Essential (primary) hypertension; M81.0 Age-related osteoporosis without current pathological fracture; M19.90 Unspecified osteoarthritis, unspecified site; K57.30 Diverticulosis of large intestine without perforation or abscess without bleeding; K44.9 Diaphragmatic hernia without obstruction or gangrene; K64.4 Residual hemorrhoidal skin tags; K64.8 Other hemorrhoids; K29.60 Other gastritis without bleeding; Z80.3 Family history of malignant neoplasm of breast
CPT/HCPCS: 45378; J2001; J2704; J7120